=== PATIENT | female | born 1955 | race Caucasian/White ===

== ENCOUNTER → 2016-11-15 | Day surgery (SDC) | payer OTHER ==
[~2016-11-15] MED LIST: BUPIVACAINE HCL PF 0.5% 10 ML VIAL ONE; HYDR-2768 PO; KETOROLAC TROMETHAMINE 30 MG/ML (IVP) VIAL ONE; LACTATED RINGER'S 1000 ML INJ 1,000 ML ONE; MECL-62 PO; MIDAZOLAM HCL 2 MG/2 ML VIAL ONE; ONDANSETRON HCL 4 MG/2 ML VIAL IV PUSH ONE; PROPOFOL 200 MG/20 ML AMP IV ONE; SODIUM CHLORIDE 0.9% SOLN 100 ML (PAB) BAG IV ONE; TAB-TAB PO; ceFAZolin INJ 1,000 MG VIAL ONE; oxyCODONE/ACETAMINOPHEN 5 MG/325 MG TAB ONE
--- NOTE | 2016-11-15 15:01 | TN ---
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 POSTOPERATIVE DIAGNOSIS Stage II invasive ductal carcinoma of the right breast status post mastectomy with positive anterior margin. PROCEDURE PERFORMED Re-excision of right chest wall anterior margin. SURGEON Jenny Rangel ANESTHESIA General via LMA device. INDICATION The patient is a 60-year-old female who presented with a palpable right breast mass. She had multifocal disease and had previous subpectoral implant placement. She opted for mastectomy with immediate reconstruction as well as sentinel lymph node biopsy. Final pathology demonstrated invasive ductal carcinoma in the upper inner and upper outer right breast. The larger lesion in the upper inner right breast had a positive anterior margin and this was reviewed by Dr. Ramon at [facility] and there was agreement that the anterior margin was positive. We have recommended re-excision as the patient is reluctant to undergo radiation or additional treatment. FINDINGS At the time of surgery no gross evidence of residual disease was identified. There was a seroma cavity surrounding the tissue records analysis manager which was not infected and this was easily evacuated. PROCEDURE After informed consent was obtained and site verification was performed, the patient was brought to the major operating room where she underwent general anesthesia via an LMA device. She was given a single dose of IV Ancef and sequential compression hose were placed. The skin of the upper inner right breast had been previously marked out at 2 o'clock 2 cm from the nipple and minimal local analgesia was infiltrated in this area. Sharp dissection was then performed and the implant capsule was included with the specimen after dissecting with electrocautery. The specimen was oriented with the skin anterior, one short suture superiorly, and one long suture laterally. Hemostasis was easily obtained with electrocautery. The wound was closed using interrupted 3-0 Vicryl subcutaneous sutures to reapproximate the implant capsule and interrupted 3-0 Vicryl subcutaneous sutures to take the tension off the skin. A 4-0 Monocryl subcuticular suture was also placed without difficulty. Steri-Strips and a sterile dressing were applied. The patient tolerated the procedure well with minimal blood loss and she was extubated in the operating room and brought to the recovery room in good condition. All sponge and needle counts were correct at the conclusion of the case. MD MARIBELL Monterroso /2:48 PM /2:54 PM
== END | disposition home or self-care (01) ==
LOC: ESDC 11:58
PROVIDERS: ATTEND Surgery
DX: C50.911 Malignant neoplasm of unspecified site of right female breast (principal); L76.34 Postprocedural seroma of skin and subcutaneous tissue following other procedure
CPT/HCPCS: 00400; 19120; 88305; J0690; J1885; J2250; J2405; J3010; J7120; 88307